=== PATIENT | female | born 1985 | race Caucasian/White ===

== ENCOUNTER 2018-03-16 11:55 | Emergency (ER) | payer BC, OTHER | END 2018-03-16 13:50 | disposition home or self-care (01) | LOC: FTE 11:55 | DX: H02.843 Edema of right eye, unspecified eyelid (principal) | CPT/HCPCS: 99283; Z7502 ==

== ENCOUNTER 2018-05-31 00:18 | Emergency (ER) | payer BC ==
[2018-05-31] MEDS ORDERED: IPRATROPIUM (NEB) 0.5 MG/2.5 ML AMP INH (02:03)
[2018-05-31] MEDS: IBUPROFEN 600 MG TAB PO (02:07)
[2018-05-31] MEDS: ALBUTEROL 0.5% (NEB) 2.5 MG/0.5 ML AMP INH (02:16)
== END 2018-05-31 03:12 | disposition home or self-care (01) ==
LOC: FTE 00:18
DX: J06.9 Acute upper respiratory infection, unspecified (principal); R07.89 Other chest pain
CPT/HCPCS: 93005; 94664; 99283-25

== ENCOUNTER 2018-12-09 23:30 | Emergency (ER) | payer BC ==
[2018-12-10] MEDS: IBUPROFEN 800 MG TAB PO (06:22)
== END 2018-12-10 08:13 | disposition home or self-care (01) ==
LOC: FTE 23:30
DX: S60.222A Contusion of left hand, initial encounter (principal); W20.8XXA Other cause of strike by thrown, projected or falling object, initial encounter; Y92.9 Unspecified place or not applicable
CPT/HCPCS: 29125; 73110-LT; 73130-LT; 99283-25